=== PATIENT | male | born 1960 | race Caucasian/White ===

== ENCOUNTER 2018-11-22 06:58 | Day surgery (SDC) | payer MEDICARE, MEDICAID ==
[2018-11-22] MEDS ORDERED: ATROPINE SULFATE 1 MG/ML VIAL IV ONE (06:59)
[2018-11-22] MEDS ORDERED: ONDANSETRON 4 MG/2 ML VIAL IV ONE (06:59)
[2018-11-22] MEDS ORDERED: IV LACTATED RINGERS SOLUTION 1,000 ML BAG IV ONE (06:59)
[2018-11-22] MEDS ORDERED: IRR NORMAL SALINE IRRIGATION 1,000 ML BOTTLE IR ONE (06:59)
[2018-11-22] MEDS ORDERED: PROPOFOL 200 MG/20 ML BOTTLE IV ONE (06:59)
[2018-11-22] MEDS ORDERED: EPHEDRINE SULFATE 50 MG/ML AMPUL MC ONE (06:59)
[2018-11-22] MEDS ORDERED: CEFAZOLIN 1 G VIAL MC ONE (06:59)
[2018-11-22] MEDS ORDERED: METOCLOPRAMIDE HCL 10 MG/2 ML VIAL IV ONE (06:59)
[2018-11-22] MEDS ORDERED: KETOROLAC TROMETHAMINE 30 MG INJ IM ONE (06:59)
[2018-11-22] MEDS ORDERED: BUPIVACAINE PF 0.5% 30 ML VIAL ONE (07:55)
[2018-11-22] MEDS ORDERED: LIDOCAINE HCL 1% 20 ML VIAL ONE (07:55)
[2018-11-22] MEDS ORDERED: MIDAZOLAM HCL 2 MG/2 ML VIAL ONE (08:56)
[2018-11-22] MEDS ORDERED: FENTANYL CITRATE 250 MCG/5 ML AMPUL ONE (08:56)
[2018-11-22] MEDS ORDERED: SUCCINYLCHOLINE CHLORIDE 200 MG/10 ML VIAL ONE (08:57)
[2018-11-22] MEDS ORDERED: SEVOFLURANE 250 ML BOTTLE ONE (10:04)
[2018-11-22] MEDS ORDERED: BUPIVACAINE/EPI PF 0.5% 10 ML VIAL ONE (10:05)
[2018-11-22] MEDS ORDERED: IBUPROFEN 800 MG TABLET PO ONE (11:45)
[2018-11-22] MEDS ORDERED: ACETAMINOPHEN 325 MG TABLET PO ONE (11:45)
[2018-11-22] MEDS ORDERED: GABAPENTIN 300 MG CAPSULE PO ONE (11:45)
== END 2018-11-22 13:05 | disposition home or self-care (01) ==
LOC: DS 06:58
PROVIDERS: ATTEND Surgery
DX: N43.3 Hydrocele, unspecified (principal); I10 Essential (primary) hypertension; F41.9 Anxiety disorder, unspecified; F17.210 Nicotine dependence, cigarettes, uncomplicated; B19.20 Unspecified viral hepatitis C without hepatic coma; Z79.899 Other long term (current) drug therapy
CPT/HCPCS: 55040; J0330; J0690; J1885; J2250; J2405; J2765; J3010; J3490 ×3; J7120 ×2; A4217; A4649; A4663; J0461